=== PATIENT | female | born 1945 | race Caucasian/White ===

== ENCOUNTER → 2023-08-12 14:12 | Outpatient (REF) | payer MEDICARE, OTHER, SELFPAY | LOC: WDC 14:12 | PROVIDERS: ATTENDING PHYSICIAN Physician Assistant; FAMILY PHYSICIAN Family Medicine | DX: Z12.31 Encounter for screening mammogram for malignant neoplasm of breast (principal) | CPT/HCPCS: 77063; 77067 ==

== ENCOUNTER → 2024-08-23 09:56 | Outpatient (REF) | payer MEDICARE, OTHER, SELFPAY | LOC: HWRAD 09:56 | PROVIDERS: ATTENDING PHYSICIAN Nurse Practitioner Adult Health; FAMILY PHYSICIAN Family Medicine | DX: G91.2 (Idiopathic) normal pressure hydrocephalus (principal) | CPT/HCPCS: 70450 ==

== ENCOUNTER → 2024-08-31 11:08 | Outpatient (REF) | payer MEDICARE, OTHER, SELFPAY ==
[2024-08-31 13:24] LABS: NT-proBNP 97.9 pg/ml
== END ==
LOC: REG 11:08
PROVIDERS: ATTENDING PHYSICIAN Physician Assistant
DX: R60.0 Localized edema (principal); R03.0 Elevated blood-pressure reading, without diagnosis of hypertension
CPT/HCPCS: 36415; 71046; 83880

== ENCOUNTER → 2024-09-14 10:13 | Outpatient (REF) | payer MEDICARE, OTHER, SELFPAY ==
[2024-09-14 11:25] LABS: Blood Urea Nitrogen 18 mg/dl (7-17); Calcium 9.3 mg/dl (8.4-10.2); Carbon Dioxide 23 mmol/L (22-30); Chloride 109 mmol/L (98-107); Glucose 101 mg/dl (70-99); Potassium 4.4 mmol/L (3.5-5.1); Sodium 141 mmol/L (135-145); eGFR > 60.00
== END ==
LOC: REG 10:13
PROVIDERS: ATTENDING PHYSICIAN Physician Assistant
DX: I77.810 Thoracic aortic ectasia (principal)
CPT/HCPCS: 36415; 80048

== ENCOUNTER → 2024-09-22 09:33 | Outpatient (REF) | payer MEDICARE, OTHER, SELFPAY | LOC: RAD 09:33 | PROVIDERS: ATTENDING PHYSICIAN Physician Assistant; REFERRING PHYSICIAN Family Medicine | DX: I77.810 Thoracic aortic ectasia (principal) | CPT/HCPCS: 71260; Q9967 ==

== ENCOUNTER 2024-10-03 11:56 | Emergency (ER) | payer MEDICARE, OTHER, SELFPAY ==
[2024-10-03 12:07] VITALS: BP 173/82
[2024-10-03 12:33] VITALS: BMI 25.3
[2024-10-03 12:35] VITALS: BP 170/69
[2024-10-03 12:54] LABS: Hematocrit 39.8 % (37.0-47.0); Hemoglobin 13.1 g/dL (12.0-16.0); Mean Corp Hgb Conc. 32.9 g/dL (33.0-37.0); Mean Corpuscular Volume 85.2 fL (81.0-99.0); Nucleated Red Blood Cells % 0 %; Platelet Count 225 10^3/uL (130-400); Red Cell Dist. Width 13.9 % (11.5-14.5)
[2024-10-03 13:01] VITALS: BP 175/67
[2024-10-03 13:19] LABS: ALT (SGPT) 26 U/L (0-35); AST (SGOT) 23 U/L (14-36); Albumin 4.5 g/dl (3.5-5.0); Alkaline Phosphatase 87 U/L (38-126); Blood Urea Nitrogen 18 mg/dl (7-17); Calcium 9.3 mg/dl (8.4-10.2); Carbon Dioxide 25 mmol/L (22-30); Chloride 109 mmol/L (98-107); Estimated Creatinine Clearance 57 ml/min; Glucose 98 mg/dl (70-99); Potassium 4.3 mmol/L (3.5-5.1); Sodium 139 mmol/L (135-145); Total Protein 7.7 g/dl (6.3-8.2); eGFR > 60.00
--- NOTE | 2024-10-03 13:23 | ED.GENMED ---
History of Present Illness
<Yahir Gan Jr., PA-C - Last Filed: 10/06/24 01:50>
General
Chief Complaint: Dizziness
Source: patient
Exam Limitations: none
Time Seen by Provider: 10/03/24 12:47
Nursing documentation reviewed up to this point in time: agreed with
History of Present Illness
History of Present Illness:
79-year-old female past medical history of hydrocephalus with CROWN POUNCER shunt presenting to the emergency department today with concerns of room spinning dizziness and feeling off balance over the past 24 hours or so. Does have a history of vertigo feels
somewhat similar. Denies any nausea chest pain shortness of breath. Seems to be worse with changes in positioning. Seems to be better when sitting still.
Past History
<Yahir Gan Jr., PA-C - Last Filed: 10/06/24 01:50>
Past History
ED Past Medical History: Negative HTN, Hypercholesterolemia, IDDM or NIDDM
ED Past Surgical History: Appendectomy and Gynecological
Social History
Tobacco: Non-smoker
Alcohol: None
Drug: None
Living: with family
Employment: Other
Family History
Family History: Hypertension; Negative Early CAD
Review of Systems
<LEEROY Tracy Jr. Last Filed: 10/06/24 01:50>
Review of Systems
Allergies reviewed?: Yes
All Other Systems: ROS reviewed and negative except as documented in HPI and ROS
Phy Exam
<LEEROY Tracy Jr. Last Filed: 10/06/24 01:50>
Physical Exam
Physical Exam:
GENERAL: Alert , in no apparent distress
EYE: pupils equal and reactive
NECK: Supple, no significant adenopathy.
ENT: o/p clr, mmm.
CARDIAC: Regular rate and rhythm .
LUNGS: Clear breath sounds bilaterally, no acute respiratory distress, no wheezes/rales/rhonchi
ABDOMEN: Soft, without focal tenderness, no r/g, no cvat
NEUROLOGICAL: Alert and oriented, no focal neuro deficits 5 out of 5 upper and lower extremity strength normal sensation when palpating bilaterally normal finger-nose and agre-ky-cubn. No pronator drift
SKIN: Warm and dry, skin intact.
MUSCULOSKELETAL: No edema, well perfused.
PSYCH: Normal and appropriate interaction.
Course
<Yahir Gan Jr., PA-C - Last Filed: 10/06/24 01:50>
Orders/Labs/Results
Orders:
Orders
10/03/24 12:14
Electrocardiogram (*1) Urgent
Reason for Study: Vertigo / Dizzy
EKG- Treatment ONCE
10/03/24 12:42
Complete Blood Count/With Diff Urgent
Comprehensive Metabolic Panel Urgent
Pro-BNP [NT-proBNP] Urgent
10/03/24 13:05
CT Head W/o Iv Contrast Urgent
Comment:
Reason For Exam: feeling off balance
Abnormal Lab Results
10/03/24
12:42
MCHC 32.9 L g/dL
(33.0-37.0)
MPV 10.8 H fL
(7.4-10.4)
Absolute Monos (auto) 0.7 H 10^3/uL
(0.1-0.6)
Monocytes % 10.4 H %
(1.7-9.3)
Chloride 109 H mmol/L
(98-107)
BUN 18 H mg/dl
(7-17)
10/03/24 12:42
10/03/24 12:42
Vital Signs
Initial and Last Documented VS:
Initial Vital Signs
Temp Pulse Resp BP Pulse Ox
98.2 F 64 20 173/82 94
10/03/24 12:07 10/03/24 12:07 10/03/24 12:07 10/03/24 12:07 10/03/24 12:07
Last Documented Vital Signs
Temp Pulse Resp BP Pulse Ox
98.2 F 61 13 162/91 96
10/03/24 12:07 10/03/24 16:00 10/03/24 16:00 10/03/24 17:22 10/03/24 17:22
<BROOKLYNN Ahn - Last Filed: 10/04/24 06:06>
Orders/Labs/Results
Orders:
Orders
10/03/24 12:14
Electrocardiogram (*1) Urgent
Reason for Study: Vertigo / Dizzy
EKG- Treatment ONCE
10/03/24 12:42
Complete Blood Count/With Diff Urgent
Comprehensive Metabolic Panel Urgent
Pro-BNP [NT-proBNP] Urgent
10/03/24 13:05
CT Head W/o Iv Contrast Urgent
Comment:
Reason For Exam: feeling off balance
Abnormal Lab Results
10/03/24
12:42
MCHC 32.9 L g/dL
(33.0-37.0)
MPV 10.8 H fL
(7.4-10.4)
Absolute Monos (auto) 0.7 H 10^3/uL
(0.1-0.6)
Monocytes % 10.4 H %
(1.7-9.3)
Chloride 109 H mmol/L
(98-107)
BUN 18 H mg/dl
(7-17)
10/03/24 12:42
10/03/24 12:42
Vital Signs
Initial and Last Documented VS:
Initial Vital Signs
Temp Pulse Resp BP Pulse Ox
98.2 F 64 20 173/82 94
10/03/24 12:07 10/03/24 12:07 10/03/24 12:07 10/03/24 12:07 10/03/24 12:07
Last Documented Vital Signs
Temp Pulse Resp BP Pulse Ox
98.2 F 61 13 162/91 96
10/03/24 12:07 10/03/24 16:00 10/03/24 16:00 10/03/24 17:22 10/03/24 17:22
<Yahir Gan Jr., PA-C - Last Filed: 10/06/24 01:50>
MDM/Problems Addressed
MDM/Problems Addressed:
79-year-old female presenting to the emergency department today with concerns of feeling off balance and dizzy starting yesterday. History of vertigo in the past feels somewhat similar. Denies any nausea chest pain shortness of breath. On arrival
hypertensive but otherwise vital signs are normal. Normal neurologic evaluation no significant lab abnormalities. Concerning the patient's symptoms CT scan was ordered. This was read as new bilateral subdural collections density suggesting
chronic subdural hematomas.
Case was discussed with neurosurgery that felt there is likely nothing acute to intervene on they did recommend close follow-up with their neurosurgery team for shunt adjustment. Patient was ambulated here without difficulty was stable for close
outpatient follow-up. Return precautions given.
<Yahir Gan Jr., PA-C - Last Filed: 10/06/24 01:50>
*Pulse Oximetry
SaO2: 98
Oxygen Mode of Delivery: Room air
<BROOKLYNN Ahn - Last Filed: 10/04/24 06:06>
*Pulse Oximetry
Patient hypoxic: no
*Critical Care Note
Total Time (30-74mins, 75-104mins- exclusive of procedures): Not Applicable
<BROOKLYNN Ahn - Last Filed: 10/04/24 06:06>
Update Note
Update Note:
received sign out. pt was pending discharge however awaiting to speak with pt neurosurg group
I spoke with the HOT PRESS OPERATOR for neuro surg. DR Henson. I reviewed CT findings and pt's complaint and as per the HOT PRESS OPERATOR pt is able to be d/c'd and office will contact her and arrange follow up with her this week.
ED Attending Note
<Yahir Gan Jr., PA-C - Last Filed: 10/06/24 01:50>
-
Portions of this chart may have been created with voice recognition software.� Occasional wrong word or��sound alike� substitutions may have occurred due to the inherent limitations of voice recognition software.
Discharge Plan
Departure
Patient Disposition: Home (Routine Discharge)
Date of Disposition: 10/03/24
Time of Disposition: 16:27
Patient with high blood pressure during this ER visit?: No
Condition: Good
Covid-19: Not Applicable
Discharge Problem:
Abnormal CT of the head, Subdural fluid collection
Instructions: Dizziness, Nonvertigo, (DC)
Prescriptions:
No Action
cetirizine 10 MG tablet
10 mg PO DAILY
calcium 500 MG tablet
500 mg PO DAILY
ascorbic acid (vitamin C) [Vitamin C] 500 MG tablet
500 mg PO DAILY
levothyroxine 125 MCG tablet
125 mcg PO DAILY
vitamin B complex [B-Complex] 1 TAB tablet
1 tab PO DAILY
coenzyme [id number] E 1 CAP capsule
1 cap PO DAILY
multivitamin with folic acid [Tab-A-Renetta] 1 TABLET tablet
1 tab PO DAILY
Magnesium
1 tab PO DAILY
Referrals:
Tera Ferrara MD [Family Provider, Family Practice]
Activity Restrictions/Additional Instructions:
You came to the emergency department today with feeling off balance. You are found to have a subdural collection on CT scan. It was recommended for close follow-up with your neurosurgeon. Office will contact you to make appt later this week.
Please return for any worsening, new or concerning symptoms. Otherwise be very careful ambulating at home.
Interventions
Interventions:
*Risk Screen - Suicide Last Done: 10/03/24 12:07
*General Assessment Last Done: 10/03/24 12:07
*Neglect/Abuse Screening Last Done: 10/03/24 12:33
*ED- Fall Risk Assessment Last Done: 10/03/24 12:33
*ED COVID-19 Vaccine History Last Done: 10/03/24 12:33
*Nursing Disposition Last Done: 10/03/24 17:39
ED- Neurological Assessment Last Done: 10/03/24 12:33
ED- Cardiac Assessment Last Done: 10/03/24 12:33
ED Swallowing Screen Last Done: 10/03/24 17:37
Discharge Date and Time
Discharge Date/Time: 10/03/24 17:40
Print Language: MONTENEGRIN
[2024-10-03 14:00] VITALS: BP 139/67
[2024-10-03 15:20] VITALS: BP 172/77
[2024-10-03 17:22] VITALS: BP 162/91
== END 2024-10-03 17:40 | disposition home or self-care (01) ==
LOC: EMR 11:56
PROVIDERS: Student in an Organized Health Care Education/Training Program; EMERGENCY PHYSICIAN Emergency Medicine; FAMILY PHYSICIAN Family Medicine
DX: R93.0 Abnormal findings on diagnostic imaging of skull and head, not elsewhere classified (principal); G91.9 Hydrocephalus, unspecified; Z98.2 Presence of cerebrospinal fluid drainage device
CPT/HCPCS: 99284; 70450; 80053; 83880; 85025; 93005